=== PATIENT | female | born 1945 | race Caucasian/White ===

== ENCOUNTER 2025-02-03 08:52 | Outpatient (REF) | payer MEDICARE, OTHER, SELFPAY ==
--- NOTE | ~2025-02-03 | XR_ITS ---
EXAMINATION: XR SHOULDER, RIGHT CLINICAL INFORMATION: M25.511 - Pain in right shoulder COMPARISON: None available. TECHNIQUE: AP Grashey, scapular Y views of the right shoulder. FINDINGS: Intramedullary nail traverses the humerus from the greater tuberosity to the distal diaphysis. There is no abnormal lucency at the bone interface. There is a healed fracture of the femoral neck with persistent varus deformity. Marginal osteophytes are present along the humeral head. XR/XR shoulder RT min 2V IMPRESSION: ORIF of the right humerus with persistent varus deformity. Moderate degenerative disease involving glenohumeral joint. Electronically signed by: Alexx Martinez MD 02/03/2025 06:13 PM EDT
--- OUTSIDE RECORDS SUMMARY | 2025-02-04 09:14 | XMS_ITS | Clinical Summary ---
Author Organization [facility] Address [address] [place] [address] Phone Care Team Providers Care Nursing Teacher Name Role Phone Damaris Flores Primary Care Provider [phone] Allergies Active Allergy Reactions Criticality Noted Date [...] Type Department Care Team Description 01/19/2025 Telephone [facility] [address] [facility] [address] [place] [address] Cheri Wagoner MD Medication 01/14/2025 Telephone [facility] [address] [place] [address] Cheri Wagoner MD Results 12/23/2024 Telephone [facility] [address] [place] [address] Cheri Wagoner MD Med Refill; Results 12/04/2024 1:00 PM EDT Ancillary Procedure [facility] - [address] [place] [address] Palpitations 11/12/2024 Telephone [facility] [address] [place] [address] Cheri Wagoner MD metoprolol succinate (TOPROL-XL) 50 mg 24 hr tablet (metoprolol succinate (TOPROL-XL) 50 mg 24 hr tablet) 11/11/2024 3:00 PM EDT Office Visit [facility] [address] [facility] [address] [place] [address] Cheri Wagoner MD Cardiomyopathy, unspecified type (CMS/HCC [...] Diagnost ic Narrative 01/19/2025 3:40 PM EDT [facility] [address] [facility], [id number], [place] [address] TEL: FAX: Type of test: ??48 hour [...] us Cheri King-Lashay [facility] [place] OCEDURES Final Result * CBC auto differential [...] AM EDT Performed at: ??01 - [facility] [address] ??[id number] Tourist Information Officer: Janet Lance MD, Phone: ??[phone] Cheri Wagoner MD LAB BLOOD ORDERABLES F inal Result [facility] 1 * Thyroid stimulating hormone (11/11/2024 3:48 PM EDT) Pathologist [facility] TSH 1.690 0.450 - 4.500 uIU/mL [facility] 1 Blood Venous blood specimen / Unknown 11/11/2024 3:48 PM EDT 11/11/2024 Narrative [facility] 1 - 11/12/2024 6:06 AM EDT Performed at: ??01 - [facility] [address] ??[id number] Tourist Information Officer: Janet Lance MD, Phone: ??[phone] Cheri Wagoner MD LAB BLOOD ORDERABLES F inal Result [facility] 1 * (ABNORMAL) Lipid panel (11/11/2024 3:48 PM EDT) Cholesterol Total 225(H) 100 - 199 mg/dL [facility] 1 Triglycerides 136 0 - 149 mg/dL [facility] 1 HDL Cholesterol 84 >39 mg/dL [facility] 1 VLDL Cholesterol Calculated 23 5 - 40 mg/dL [facility] 1 LDL Chol Calc ([facility]) 118(H) 0 - 99 mg/dL [facility] 1 Blood Venous blood specimen / Unknown 11/11/2024 3:48 PM EDT 11/11/2024 Narrative [facility] 1 - 11/12/2024 6:06 AM EDT Performed at: ??01 - [facility] [address] ??[id number] Tourist Information Officer: Janet Lance MD, Phone: ??[phone] Cheri Wagoner MD LAB BLOOD ORDERABLES F [...] AM EDT Performed at: ??01 - [facility] [address] ??[id number] Tourist Information Officer: Janet Lance MD, Phone: ??[phone] us Cheri Wagoner MD LAB BLOOD ORDERABLES F inal Result Performing Organization Address City/[facility] Co de Phone Number [facility] 1 * ECG 12 lead (11/11/2024 3:14 PM EDT) Ventricular Rate ECG 108 BPM GEMUSE Atrial Rate 108 BPM GEMUSE P-R Interval 182 ms GEMUSE QRS Duration 78 ms GEMUSE Q-T Interval 334 ms GEMUSE QTc 447 ms GEMUSE P Wave [place] 87 degrees GEMUSE R [place] 98 degrees GEMUSE T [place] 83 degrees GEMUSE ECG Interpretation Sinus tachycardia Rightward axis Borderline ECG No previous ECGs available Confirmed by CHERI WAGONER ([id number]) on 11/13/2024 9:22:20 AM GEMUSE 11/11/2024 3:14 PM EDT 11/13/2024 9:22 AM EDT us Cheri Wagoner MD ECG ORDERABLES Final Result Performing Organization Address [facility] Co de Phone Number GEM[facility] from Last 3 Months Insurance MED[employer]ARE [employer] [place] Care Teams Nursing Teacher Relationship Specialty Start Date End Date Damaris Flores PA [address] [place] [address] [place] [address] PCP - General 11/11/24
== END 2025-02-03 08:53 | disposition home or self-care (01) ==
LOC: HO.HOSX 08:52
PROVIDERS: Visit Provider Orthopaedic Surgery
DX: M25.511 Pain in right shoulder (principal)
CPT/HCPCS: 73030; 99202

== ENCOUNTER 2025-02-03 14:43 | Outpatient (AMB) | payer MEDICARE, SELFPAY ==
--- NOTE | 2025-02-03 14:55 | MHC.OFFVIS ---
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 Patient reports in 1983 she had a surgery in her right shoulder and a jesus was placed. The patient states that she fractured her right humerus when she fell off of a chair. She reports intermittent discomfort along the lateral aspect of her right shoulder. She has been doing adzou-tf-ukeakl exercises which gave her fairly good relief. She wishes to hold off on surgery if at all possible. 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 Physical Exam Vital Signs: BMI result Body Mass Index 16.2 Const Other: Well-nourished well-developed very friendly female awake alert and oriented x3 in no acute distress Extrem Other: Right shoulder examination shows almost full range of motion when compared to her left shoulder, minimal discomfort with range of motion, 4/5 strength with supraspinatus testing, positive impingement signs, no instability Results Reviewed Results Reviewed: X-rays of the patient's right shoulder and humerus show an intramedullary jesus with no signs of loosening, mild to moderate glenohumeral joint degenerative changes, a type 2 acromion, no acute bony abnormalities Assessment & Plan Assessment & Plan (1) Right shoulder pain: Code(s): M25.511 - Pain in right shoulder Category: Medical Plan Ms. Greene presents with intermittent right shoulder discomfort due to impingement syndrome. I had a lengthy discussion with the patient regarding the treatment options. At this point the patient's symptoms are tolerable to her. She will continue with her home stretching program. We will hold off on a cortisone injection. She will follow up with me on an as-needed basis should her symptoms worsen in any way. Feel free to call me at any time should questions regarding her orthopedic management arise. Thank you very much for asking me to see this very friendly patient. I spent 22 minutes in reviewing the patient's records and imaging studies, seeing the patient and documenting in the medical record. Orders: Orders XR shoulder RT min 2V 02/03/25 M25.511 - Pain in right shoulder Coding Level of Care Code New Pt Level 3 (76376) Complex EM visit Add On G2211 Diagnoses Right shoulder pain M25.511
[2025-02-03 14:58] VITALS: BMI 16.2
--- OUTSIDE RECORDS SUMMARY | 2025-02-03 16:29 | XMS_ITS | Clinical Summary ---
Author Organization [facility] Address [address] [address] Phone Care Team Providers Care Base Brander Name Role Phone Damaris Flores Primary Care Provider [phone] Allergies Active Allergy Reactions Criticality Noted Date Comments Nut - Unspecified 09/14/2023 Stomach pain Sulfamethoxazole-Trimethoprim Rash 2023 Medications alendronate (FOSAMAX) 70 mg tablet Take 1 Tablet by mouth every 7 days. Active metoprolol succinate (TOPROL-XL) 50 mg 24 hr tabletIndications :Cardiomyopathy, unspecified type (CMS/HCC V24, CMS/HCC V28),Primary hypertension Take 1 tablet (50 mg total) by mouth 1 (one) time each day. Do not crush or chew. 90 each 3 11/12/2024 11/08/19 26 Active valsartan (DIOVAN) 40 mg tablet Take 1 tablet (40 mg total) by mouth 1 (one) time each day. Take 1 Tablet by mouth daily. 90 tablet 3 12/24/2024 Active Active Problems Problem Noted Date Diagnosed Date Primary hypertension 11/11/2024 Assessment & Plan (12/22/2024 12:03 PM EDT): The patient has a history of arterial hypertension. The patient's blood pressure today was noted to be slightly elevated. Will increase metoprolol from 25 mg/day up to 50 mg/day. Orders: Comprehensive metabolic panel; Future Thyroid stimulating hormone; Future CBC and differential; Future Lipid panel; Future Palpitations 11/11/2024 Assessment & Plan (12/22/2024 12:03 PM EDT): The patient has been experiencing episodes of palpitations. We will order a Holter monitor to evaluate for any underlying arrhythmias as a cause of her symptoms. Will increase her Toprol to 50 mg/day. Will also complete laboratory testing including CBC, comprehensive metabolic panel, and TSH level. Orders: Thyroid stimulating hormone; Future CBC and differential; Future Cardiac holter monitor (<= 48 hours); Future Cardiomyopathy (CMS/HCC V24, CMS/HCC V28) 2023 Overview (09/15/2024): Last Assessment & Plan: The patient completed an echocardiogram in April 2023 that showed hypokinesis of the basal to mid inferoseptal wall and basal to mid inferior wall. She was referred for nuclear stress test to rule out coronary artery disease as a cause of her wall motion abnormalities. Nuclear stress test done in September 2023 that did not show any evidence of ischemia or infarct on the myocardial perfusion imaging. Specifically, there was no evidence of an infarct associated with the inferior or the inferoseptal wall. Therefore, the patient does not seem to have any significant coronary artery disease given the absence of ischemia or infarct on the myocardial perfusion imaging study. After that, the patient underwent a cardiac MRI on 12/31/2023 to rule out the presence of an infiltrative cardiomyopathy as a cause of her LV wall motion abnormalities. The cardiac MRI showed a mildly reduced LV systolic function with an LVEF of 51%, normal LV wall thickness, mild hypokinesis of the mid inferior wall, mild size into the moderately increased signal in the basal lateral wall suggestive of a nonischemic cardiomyopathy, low normal RV function with an RVEF of 50%, and no pericardial effusion. As such, the patient has a mild nonischemic cardiomyopathy given the nuclear stress test results and the cardiac MRI results. However, there was no evidence of an infiltrative cardiomyopathy on the cardiac MRI. Currently, the patient does not have any significant cardiac symptoms. She continues on low-dose beta-nhung therapy with Toprol 25 mg orally daily. Given her mild nonischemic cardiomyopathy, we will start the patient on valsartan 40 mg orally daily. The patient was instructed to monitor her blood pressure at home given the addition of the valsartan. The patient was also instructed to complete a follow- up chemistry panel 1 week after the initiation of the valsartan. She was also instructed to avoid potassium rich foods given the addition of the valsartan. Assessment & Plan (12/22/2024 12:03 PM EDT): The patient has a mild nonischemic cardiomyopathy. Previous nuclear stress test did not show any evidence of ischemia or infarct. Cardiac MRI done in 2023 did not show any evidence of an infiltrative cardiomyopathy or hypertrophic cardiomyopathy. LVEF was noted to be 51% on the cardiac MRI. The patient is on Toprol and losartan. Will continue her current therapy. Orders: ECG 12 lead Encounters Date Type Department Care Team Description 01/19/2025 [address]phone [facility] [address] [address] [place] [address] Cheri Wagoner MD Medication 01/14/2025 Telephone [facility] [address] [facility] [address] [place] [address] Cheri Wagoner MD Results 12/23/2024 Telephone [facility] [address] [facility] [address] [place] [address] Cheri Wagoner MD Med Refill; Results 12/04/2024 1:00 PM EDT Ancillary Procedure [facility] - [address] [place] [address] Palpitations 11/12/2024 Telephone [facility] [address] [place] [address] Cheri Wagoner MD metoprolol succinate (TOPROL-XL) 50 mg 24 hr tablet (metoprolol succinate (TOPROL-XL) 50 mg 24 hr tablet) 11/11/2024 3:00 PM EDT Office Visit [facility] [address] [facility] [address] [place] [address] Cheri Wagoner MD Cardiomyopathy, unspecified type (CMS/HCC V24, CMS/HCC V28) (Primary Dx); Primary hypertension; Palpitations from Last 3 Months Social History Tobacco Use Types Packs/Day Years Used Date Smoking Tobacco: Never Smokeless Tobacco: Never Alcohol Use Standard Drinks/Week Comments Never 0 (1 standard drink = 0.6 oz pur e alcohol) Comments Unknown Sex and Gender Information Value Date Recorded Sex Assigned at Not on file Legal Sex Female 1:20 PM EST Gender Identity Not on file Sexual Orientation Not on file Obstetrics History Last Filed Vital Signs Vital Sign Reading Time Taken Comments Blood Pressure 140/80 11/11/2024 2:59 PM EDT Pulse 92 01/15/2024 8:00 AM EDT Temperature - - Respiratory Rate - - Oxygen Saturation 98% 11/11/2024 2:59 PM EDT Inhaled Oxygen Concentration - - Weight 43.1 kg (95 lb) 11/11/2024 2:59 PM EDT Height 157.5 cm (5' 2 ) 11/11/2024 2:59 PM EDT Body Mass Index 17.38 11/11/2024 2:59 PM EDT Plan of Treatment Health Maintenance Due Date Last Done Comments DTaP,Tdap,and Td Vaccines (1 - Tdap) 1964 Zoster Vaccines (2 of 3) 02/14/2013 12/20/2012 RSV Immunization Adult Patients (1 - 1-dose 75+ series) 2021 Depression Screening 08/01/2022 Falls Risk Assessment 08/01/2022 Hepatitis C Screening 08/01/2022 Medicare Annual Wellness Visit 08/01/2022 Osteoporosis Screening (Bone Density Screening) 08/01/2022 Social Influencers of Health Screening 08/01/2022 COVID-19 Vaccine ( season) 2024 06/23/2022, 06/24/2021, 11/24/2020, Additional history exists Hypertension/CHF/CAD Annual BMP Blood Test 11/11/2025 11/11/2024 Cholesterol Screening (Lipid Panel) 11/11/2029 11/11/2024 Pneumococcal Vaccine: 50+ Years Completed 08/30/2016, 06/22/2014 Influenza Vaccine Completed 06/06/2024, , 06/06/2022, Additional history exists HIB Vaccines Aged Out No longer eligi ble based on patient's age to complete this topic HPV Vaccines Aged Out No longer eligi ble based on patient's age to complete this topic Hepatitis A Vaccines Aged Out No long er eligible based on patient's age to complete this topic Hepatitis B Vaccines Aged Out No long er eligible based on patient's age to complete this topic IPV Vaccines Aged Out No longer eligi ble based on patient's age to complete this topic MMR Vaccines Aged Out No longer eligi ble based on patient's age to complete this topic Meningococcal ACWY Vaccine Aged Out N o longer eligible based on patient's age to complete this topic Meningococcal B Vaccine Aged Out No l onger eligible based on patient's age to complete this topic RSV Immunization Patients Under 20 months Aged Out No longer eligible based on patient's age to complete this topic Varicella Vaccines Aged Out No longer eligible based on patient's age to complete this topic Procedures Procedure Name Priority Date/Time Associated Diagnosis Comments CARDIAC HOLTER MONITOR (REPORT GENERATED IN HOUSE) Routine 12/04/2024 12:41 PM EDT Palpitations CBC WITH AUTO DIFFERENTIAL Routine 11/11/2024 3:48 PM EDT Primary hypertension Palpitations LIPID PANEL Routine 11/11/2024 3:48 PM EDT Primary hypertension CBC AND DIFFERENTIAL Routine 11/11/2024 3:48 PM EDT Primary hypertension Palpitations THYROID STIMULATING HORMONE Routine 11/11/2024 3:48 PM EDT Primary hypertension Palpitations COMPREHENSIVE METABOLIC PANEL Routine 11/11/2024 3:48 PM EDT Primary hypertension ECG 12-LEAD Routine 11/11/2024 3:14 PM EDT Cardiomyopathy, unspecified type (CMS/HCC V24, CMS/HCC V28) from Last 3 Months Results * CARDIAC HOLTER MONITOR (REPORT GENERATED IN HOUSE) (12/04/2024 12:41 PM EDT) Anatomical Region Laterality Modality Cardiac Diagnost ic Narrative 01/19/2025 3:40 PM EDT [facility] [address] [facility], [id number], [place] [address] TEL: FAX: Type of test: ??48 hour Holter Monitor Date of test: ??12/04/24 Ordering provider: ??Cheri King MD Reason for Test: ??Palpitations Findings: 1: The predominant rhythm was a normal sinus rhythm. 2: Heart rate range was 72- 140 bpm with an average of 93 bpm Total time in Sinus Tachycardia was 13 hrs 6 mins. 3: Rare PACs with a few atrial pairs and one 4-beat atrial run. Rare PVCs. No sustained arrhythmias. 4: No pauses noted. Longest R-R 1.0 sec. 5: Diary returned with no entries for heart rate correlation. us Cheri King-Lashay [facility] [place] OCEDURES Final Result * CBC auto differential (11/11/2024 3:48 PM EDT) WBC 5.5 3.4 - 10.8 x10E3/uL [facility] 1 RBC 3.90 3.77 - 5.28 x10E6/uL [facility] 1 Hemoglobin 12.4 11.1 - 15.9 g/dL [facility] 1 Hematocrit 37.6 34.0 - 46.6 % [facility] 1 MCV 96 79 - 97 fL [facility] 1 MCH 31.8 26.6 - 33.0 pg [facility] 1 MCHC 33.0 31.5 - 35.7 g/dL [facility] 1 RDW 11.8 11.7 - 15.4 % [facility] 1 Platelets 253 150 - 450 x10E3/uL [facility] 1 Neutrophils 62 Not Estab. % [facility] 1 Lymphocytes 25 Not Estab. % [facility] 1 Monocytes 11 Not Estab. % [facility] 1 Eosinophils 1 Not Estab. % [facility] 1 Basophils 1 Not Estab. % [facility] 1 Neutrophils Absolute 3.4 1.4 - 7.0 x10E3/uL [facility] 1 Lymphocytes Absolute 1.4 0.7 - 3.1 x10E3/uL [facility] 1 Monocytes Absolute 0.6 0.1 - 0.9 x10E3/uL [facility] 1 Eosinophils Absolute 0.1 0.0 - 0.4 x10E3/uL [facility] 1 Basophils Absolute 0.1 0.0 - 0.2 x10E3/uL [facility] 1 Immature Granulocytes Relative 0 Not Estab. % [facility] 1 Immature Grans (Abs) 0.0 0.0 - 0.1 x10E3/uL [facility] 1 Blood Venous blood specimen / Unknown 11/11/2024 3:48 PM EDT 11/11/2024 Narrative [facility] 1 - 11/12/2024 8:07 AM EDT Performed at: ??01 - [facility] [address] ??[id number] Wire Weaving Loom Setter: Janet Lance MD, Phone: ??[phone] Cheri Wagoner MD LAB BLOOD ORDERABLES F inal Result [facility] 1 * Thyroid stimulating hormone (11/11/2024 3:48 PM EDT) Pathologist [facility] TSH 1.690 0.450 - 4.500 uIU/mL [facility] 1 Blood Venous blood specimen / Unknown 11/11/2024 3:48 PM EDT 11/11/2024 Narrative [facility] 1 - 11/12/2024 6:06 AM EDT Performed at: ??01 - [facility] [address] ??[id number] Wire Weaving Loom Setter: Janet Lance MD, Phone: ??[phone] Cheri Wagoner MD LAB BLOOD ORDERABLES F inal Result [facility] * (ABNORMAL) Lipid panel (11/11/2024 3:48 PM EDT) Cholesterol Total 225(H) 100 - 199 mg/dL [facility] 1 Triglycerides 136 0 - 149 mg/dL [facility] 1 HDL Cholesterol 84 >39 mg/dL [facility] 1 VLDL Cholesterol Calculated 23 5 - 40 mg/dL [facility] 1 LDL Chol Calc ([facility]) 118(H) 0 - 99 mg/dL [facility] 1 Blood Venous blood specimen / Unknown 11/11/2024 3:48 PM EDT 11/11/2024 Narrative [facility] 1 - 11/12/2024 6:06 AM EDT Performed at: ??01 - [facility] [address] ??[id number] Wire Weaving Loom Setter: Janet Lance MD, Phone: ??[phone] Cheri Wagoner MD LAB BLOOD ORDERABLES F inal Result [facility] * Comprehensive metabolic panel (11/11/2024 3:48 PM EDT) Glucose 84 70 - 99 mg/dL [facility] 1 Blood Urea Nitrogen (BUN) 16 8 - 27 mg/dL [facility] 1 Creatinine 0.61 0.57 - 1.00 mg/dL [facility] 1 eGFR 92 >59 mL/min/1. 73 [facility] 1 BUN/Creatinine Ratio 26 12 - 28 [facility] 1 Sodium 141 134 - 144 mmol/L [facility] 1 Potassium 3.9 3.5 - 5.2 mmol/L [facility] 1 Chloride 101 96 - 106 mmol/L [facility] 1 Carbon Dioxide 24 20 - 29 mmol/L [facility] 1 Calcium 9.5 8.7 - 10.3 mg/dL [facility] 1 Protein Total 6.9 6.0 - 8.5 g/dL [facility] 1 Albumin 4.3 3.8 - 4.8 g/dL [facility] 1 Globulin Total 2.6 1.5 - 4.5 g/dL [facility] 1 Bilirubin Total 0.3 0.0 - 1.2 mg/dL [facility] 1 Alkaline Phosphatase 54 44 - 121 IU/L [facility] 1 Aspartate aminotransferase??(A ST) 24 0 - 40 IU/L [facility] 1 Alanine Aminotransferase (ALT) 21 0 - 32 IU/L [facility] 1 Blood Venous blood specimen / Unknown 11/11/2024 3:48 PM EDT 11/11/2024 Narrative [facility] 1 - 11/12/2024 6:06 AM EDT Performed at: ??01 - [facility] [address] ??[id number] Wire Weaving Loom Setter: Janet Lance MD, Phone: ??[phone] us Cheri Wagoner MD LAB BLOOD ORDERABLES F inal Result Performing Organization Address City/[facility] Co de Phone Number [facility] 1 * ECG 12 lead (11/11/2024 3:14 PM EDT) Ventricular Rate ECG 108 BPM GEM[facility] Atrial Rate 108 BPM GEMUSE P-R Interval 182 ms GEMUSE QRS Duration 78 ms GEMUSE Q-T Interval 334 ms GEMUSE QTc 447 ms GEMUSE P Wave [place] 87 degrees GEMUSE R [place] 98 degrees GEMUSE T [place] 83 degrees GEMUSE ECG Interpretation Sinus tachycardia Rightward axis Borderline ECG No previous ECGs available Confirmed by CHERI WAGONER ([id number]) on 11/13/2024 9:22:20 AM GEMUSE 11/11/2024 3:14 PM EDT 11/13/2024 9:22 AM EDT us Cheri Wagoner MD ECG ORDERABLES Final Result Performing Organization Address [facility] Co de Phone Number [facility] from Last 3 Months Insurance [employer] [place] Care Teams Base Brander Relationship Specialty Start Date End Date Damaris Flores PA [address] [place] [address] [place] [address] PCP - General 11/11/24
== END 2025-02-03 15:25 | disposition home or self-care (01) ==
LOC: HO.HOS 14:44
PROVIDERS: PCP Physician Assistant; Visit Provider Orthopaedic Surgery
DX: M25.511 Pain in right shoulder (principal)
CPT/HCPCS: 99203; G2211

== ENCOUNTER → 2025-02-03 14:48 | Outpatient (BNV) | payer MEDICARE, SELFPAY | PROVIDERS: Visit Provider Radiology Diagnostic Radiology | DX: M25.511 Pain in right shoulder (principal) | CPT/HCPCS: 73030 ==